=== PATIENT | female | born 1995 | race Caucasian/White ===

== ENCOUNTER 2016-11-05 20:47 | Emergency (ER) | payer OTHER ==
[~2016-11-05] VITALS: Ht 154.9 cm; Wt 81.8 kg
[~2016-11-05 20:47] MED LIST: AMBIEN5 MG PO; ASCORBIC ACID500 M3 PO; MECLIZINE HCL25 MG PO; VITAMIN D-32000 UNI2 PO
[2016-11-05] MEDS ORDERED: LEXAPRO10 MG PO (20:58)
[2016-11-05] MEDS ORDERED: KEPPRA1000 MG PO (20:58)
[2016-11-05] MEDS ORDERED: LAMICTAL100 MG PO (20:59)
[2016-11-05] MEDS ORDERED: HTN (21:00)
[2016-11-05 21:44] LABS: HEMATOCRIT 39.7 % (36.0-46.0); MCH 27.4 PG (29.0-34.0); MCHC 32.5 G/DL (30.0-36.0); MCV 84.5 FL (83-99); MEAN PLAT.VOLUME 10.1 uM^3 (9.5-12.4); PLATELET COUNT 321 K/uL (156-360); RBC DIS.WIDTH-CV 14.6 % (11.8-14.6); RBC DIS.WIDTH-SD 44.2 % (39-53); WHITE BLOOD COUNT 8.2 K/uL (4.1-10.2)
[2016-11-05 21:55] LABS: CHLORIDE 108 mEq/L (99-109); POTASSIUM 4.2 mEq/L (3.7-5.4); SODIUM 143 mEq/L (136-147)
[2016-11-05 21:57] LABS: GLUCOSE 88 mg/dL (70-99)
[2016-11-05 21:59] LABS: ANION GAP 11 MEQ/L (2-14)
[2016-11-05 22:02] LABS: GFR ESTIMATE (CALCULATED) > 59 mL/min/; UREA NITROGEN (BUN) 13 mg/dL (9-23)
[2016-11-05 22:03] LABS: CREATINE KINASE 95 IU/L (1-294); TOTAL CK 95 IU/L (1-294)
[2016-11-05 22:11] LABS: CK-MB 0.7 ng/mL (0.0-4.9)
[2016-11-05 22:19] LABS: QUANTITATIVE HCG < 4.0 MIU/ML
[2016-11-05] MEDS ORDERED: ILOTYCIN1 GM RIGHT EYE (22:27)
[2016-11-05 22:41] VITALS: BP 106/66
== END 2016-11-05 22:43 | disposition home or self-care (01) ==
LOC: EME → EDBD 20:47 → EME 20:47
PROVIDERS: Emergency Medicine
DX: R41.82 Altered mental status, unspecified (principal); H10.9 Unspecified conjunctivitis; R51 Headache
CPT/HCPCS: 80048; 82550; 82553; 84702; 85027; 93005; 99281; 99284